=== PATIENT | male | born 1950 ===

== ENCOUNTER 2025-05-04 06:19 | Outpatient (REF) | payer MEDICARE, SELFPAY ==
--- OUTSIDE RECORDS SUMMARY | 2023-01-24 07:51 | XMS_ITS | Continuity of Care Document ---
Author Organization [facility] Address [address], [place] [address] Phone Care Team Providers Care Saw Man Name Role Phone Willie Alicea, Marcos Unavailable Unavailable Allergies, Adverse Reactions, Alerts Substance Reaction Status Criticality No Known Allergies Active No Inform ation Medications Medication Instructions Dosage Effective Dates (start - stop) Status Comments prednisone 20 mg tablet take 3 tab x 3 days, 3 tab x 3 days, 2 tab x 3 days, 1 tab x 6 days - No Longer Active tramadol 50 mg tablet take 1 tablet by oral route every 6 hours as needed 50 MG - No Longer Active Procedures Procedure Date Lateral Stabilizer W/ Hinge Neoprene (OT S Fit) Current Medications Documented By Provid er BMI Within Normal Limits And Documented TOBACCO NON-USER PT Moderate Complexity THERAPEUTIC EXERCISES X-RAY EXAM, KNEE, 4 OR MORE Extended New Patient Visit Intermediate New Patient Visit 16 X-RAY LS Spine 4 View Min. Follow Up Care Therapeutic Procedure (each 15 Minutes) Therapeutic Procedure (each 15 Minutes) Therapeutic Procedure (each 15 Minutes) Initial PT Evaluation Hot Pack Cryotherapy S T K Rope and Jarek Set Sub Acrom. Decompression Arthrosc Debridement Shoulder Limited Ju Ambulite/Cradle Sling And Swathe/Hanging Cast Sling Sub Acrom. Decompression Arthrosc Debridement Shoulder Limited Ju Kenelog Injection, bupivicaine hydro Arthrocentesis Large Joint Extended Estabilished Patient Visit MRI SHOULDER/ELBOW/WRIST/FINGER/HAND W/O Contrast Kenelog Marcaine Arthrocentesis Large Joint Intermediate Established Patient Visit J X-RAY Shoulder 2 Or More Views 11 Advance Directives Directive Yes / No Effective Date File Name No Information Encounters Encounter Description Practice Location Reason(s) For Visit Diagnoses Date Provider Providers Copied on Encounter [facility], [address] [place] [address], [id number], tel:[phone] [facility] Unilateral primary osteoarthriti s, right knee 3 Willie Rodríguez. [address] [place] [address], [id number], . tel:[phone] Referring Provider: Acosta Vásquez, [address] [place] [address], [id number]. tel:[phone] [facility], [address] [place] [address], [id number], tel:[phone] [facility] Arthritis of right knee 3 Valarie Dee. [address] [place] [address], [id number], [place]. tel:[phone] Referring Provider: Marcos Sam, [address] [place] [address], [id number]. tel:[phone] Extended New Patient Visit [facility], [address] [place] [address], [id number], tel:[phone] [facility] right knee Pain (chief complaint) Pain, joint, knee, rightSprain of right knee, unspecified ligament, initial encounterArth ritis of right knee 3 Willie Rodríguez. [address] [place] [address], [id number], [place]. tel:[phone] Referring Provider: Fransico Casas, [address] [facility], [place], [address]. tel:[phone] Intermediate New Patient Visit [facility], [address] [place] [address], [id number], [place] tel:[phone] [place] [address] [place] Pain of lumbar spine 6 Skye Talbot. [address] [place] [address], [id number], [place]. tel:[phone] Referring Provider: Fransico Casas, [address] [facility], [place], [address]. tel:[phone] [facility], [address] [place] [address], [id number], [place] tel:[phone] [place], [place] [address]t Ct left shoulder (chief complaint) Shoulder BursitisBicep s TendonitisAft ercare following surgery of the musculoskelet al system, NEC 1 Jj Chambers. [address] [place] [address], [id number], [place]. tel:[phone] Referring Provider: Fransico Casas, [address], [place], [address]. tel:[phone] [facility], [address] [place] [address], [place], [id number], [place] tel:[phone] [place] [address] [facility] [place] shoulder surgery post op (chief complaint) No Information 1 Davina Ellsworth. [address] [place] [address], [place], [id number]. tel:[phone] Referring Provider: Fransico Casas [address] [facility], [place], [address]. tel:[phone] [facility], [address] [place] [address], [id number], [place] tel:[phone] [facility] shoulder surgery post op (chief complaint) No Information 1 Davina Ellsworth. [address] [place] [address], [id number]. tel:[phone] Referring Provider: [address], [place], [address]. tel:[phone] [facility], [address] [place] [address], [id number], [place] tel:[phone] [place] [address] shoulder surgery post op (chief complaint) Rotator Cuff Tear 1 Davina Ellsworth. [address] [place] [address], [id number]. tel:[phone] Referring Provider: [address], [place], [address]. tel:[phone] [facility], [address] [place] [address], [id number], [place] tel:[phone] [facility] No Information 1 Jae Lubin. [address] [place] [address], [id number], [place]. tel:[phone] Referring Provider: [address], [place], [address]. tel:[phone] [facility], [address] [place] [address], [id number], [place] tel:[phone] [facility] No Information 1 Jj Chambers. [address] [place] [address], [id number], [place]. tel:[phone] Referring Provider: [address], [place], [address]. tel:[phone] Extended Estabilished Patient Visit [facility], [address] [place] [address], [id number], [place] tel:[phone] [facility] [address] MRI results left shoulder (chief complaint) Shoulder Bursitis 1 Roeshot Tristian. [address] [place] [address], [id number], [place]. tel:[phone] Referring Provider: Fransico Casas, [address] [facility], [place], [address]. tel:[phone] Intermediate Established Patient Visit [facility], [address] [place] [address], [id number], tel:[phone] [facility] MRI Shoulder Bursitis 1 Jae Lubin. [address] [place] [address], [id number], . tel:[phone] Referring Provider: Tristian Rowe, [address] [place] [address], [id number]. tel:[phone] [facility], [address] [place] [address], [id number], tel:[phone] [place] [address] Ct left shoulder injury (chief complaint) Pain In LimbShoulder Bursitis 1 Jae Lubin. [address] [place] [address], [id number], . tel:[phone] Referring Provider: Troy Lyle, [address] [facility], [place], [address]. tel:[phone] Family History Family Member Type Diagnosis Age At Onset Family h/o Problem (finding) Cancer Problem (finding) Family history of Thyro id disorder Payers Payer name Insurance type Covered alliance party ID Authoriza tion(s) [employer] N[place] dicare [employer] BL [id number] Social History Type Description Quantity Date Captured Comments Alcohol Use Details Unknown Caffeine Use Details Unknown Tobacco Use Status No Information Smoking Status No Information Sex Male Chief Complaint And Reason For Visit No Information Reason For Referral Reason For Referral No Information Plan Of Treatment Date Type Action Status Referral Ordered: X-RAY Tib/Fib 2 Views RT knee ordered Referral Ordered: X-RAY Knee 4 Or More Views RT knee ordered Referral Ordered: X-RAY LS Spine 4 View Min. ordered History Of Present Illness Encounter Date Complaint History Of Prese nt Illness right knee Pain The symptoms are reported as being moderate. The symptoms occur daily. Aggravating factors include daily activities, standing, walking and weight bearing. New patient. Right knee pain since August. Pain is improving but patient is still having some issues and would like to discuss. New XR's ordered today Functional Status Date Functional Assessmen t No Information Instructions Date Instruction Additional Infomaame jimenez Presents for evaluat ion of right knee pain has been ongoing for several months. Denies any specific injuries but began having pain after surfing a few months ago. Overall states his pain is improved over the last few weeks he is using [id number] knee sleeve as well as intermittent Tylenol. On exam negative Michelle's, ligaments are stable. Does have some mild diffuse anterior knee pain. 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 This point will place into a patellofemoral stabilizing brace, he is interested in some home exercises to strengthen the knee, he has a trip planned in a month ago surfing and would like to rehab his knee prior to this. He can follow-up after his trip he was having any pain we did discuss possible viscosupplementation once he returns Related to Pain, joint, knee, right Advance activity as tolerated Progress until full ROM Ice as needed Resume normal activity Progress until full strength Ice every hour for 15 min, first 2 days Begin strengthening program afte r 1 week Limit overhead reaching, pushing /pulling Assessments Type Assessment Date No Information Patient Care Teams Name Effective Dates (start - stop) Status Members No Information
--- NOTE | ~2025-05-04 | US_ITS ---
CLINICAL HISTORY: Left inguinal and suprapubic pain, ? hernia Ultrasound left inguinal region. No comparison provided. Findings: No definite hernia is seen. No masses or cysts are noted. Impression: No definite hernia is identified. This document has been electronically signed by: Jean-Pierre Ramos MD on 05/05/2025 20:26:00
== END 2025-05-04 06:20 | disposition home or self-care (01) ==
LOC: HO.UMASIMG 06:19
PROVIDERS: Visit Provider Physician Assistant Medical
DX: R10.32 Left lower quadrant pain (principal)
CPT/HCPCS: 76857

== ENCOUNTER → 2025-05-04 10:29 | Outpatient (BNV) | payer MEDICARE, SELFPAY | PROVIDERS: Visit Provider Radiology Diagnostic Radiology | DX: R10.32 Left lower quadrant pain (principal) | CPT/HCPCS: 76857 ==